=== PATIENT | male | born 1980 | race Caucasian/White ===

== ENCOUNTER 2016-12-02 13:14 | Inpatient (IN) | payer OTHER ==
--- NOTE | 2016-12-02 18:00 | HP ---
HISTORY AND PHYSICAL HISTORY AND PHYSICAL AND DISCHARGE SUMMARY: DATE OF SERVICE: 12/02/2016 This is a combined history and physical and discharge summary. This 36-year-old gentleman with a past medical history of multiple medical problems was admitted with acute diverticulitis referred from [facility], but the patient left the hospital against medical advice before being seen. Please refer to staff notes and other notes for further information. Prognosis remains guarded. FINAL DIAGNOSIS: Acute diverticulitis. MMODL / IJN: [id number] /
== END 2016-12-02 15:45 | disposition left against medical advice (07) | DRG 392 ==
LOC: 4MS4W 15:36
PROVIDERS: ADMIT Hospitalist; ATTEND Hospitalist
DX: K57.92 Diverticulitis of intestine, part unspecified, without perforation or abscess without bleeding (principal); F17.210 Nicotine dependence, cigarettes, uncomplicated; F12.90 Cannabis use, unspecified, uncomplicated

== ENCOUNTER 2016-12-02 15:59 | Inpatient (IN) | payer OTHER ==
[2016-12-02] MEDS ORDERED: SODIUM CHLORIDE 0.9% 1,000 ML IV STA (17:18)
[2016-12-02] MEDS ORDERED: ACETAMINOPHEN TAB 325 MG TAB PO PRN (17:47)
[2016-12-02] MEDS ORDERED: NALOXONE 0.4 MG/ML 1 ML VIAL IV PRN (17:47)
--- NOTE | 2016-12-02 17:47 | ED ---
General Adult HPI <ElvisPio - Last Filed: 12/02/16 17:47> - General Source: patient, RN notes reviewed Mode of arrival: ambulatory Limitations: no limitations <Vaughn Amador - Last Filed: 12/02/16 17:50> - General Chief complaint: Abdominal Pain Stated complaint: abdominal pain Time Seen by Provider: 12/02/16 17:16 - History of Present Illness Initial comments: Patient 36-year-old male who presents emergency room today with chief complaint of abdominal pain over the last 4 days. Does admit that he was at the and transferred here for colitis. Patient states that he was on the floor admitted. He states that he needs to have cigarette and was advised that he would have to go through this admission process of working states that he just needed to have cigarette. He states that the patches do not seem to work well. States he still experiencing lower abdominal discomfort. Patient denies any other complaints or symptoms at time. Patient denies any recent fever, chills, shortness of breath, chest pain, numbness or tingling, dysuria or hematuria, constipation, headaches or visual changes, or any other complaints. (Vaughn Amador) - Related Data Home Medications Medication Instructions Recorded Confirmed No Known Home Medications [No 12/02/16 12/02/16 Known Home Medications] Allergies Allergy/AdvReac Type Severity Reaction Status Date / Time No Known Allergies Allergy Verified 12/02/16 17:41 Review of Systems ROS Other: All systems not noted in ROS Statement are negative. <Pio Leal - Last Filed: 12/02/16 17:47> ROS Other: All systems not noted in ROS Statement are negative. <Vaughn Amador - Last Filed: 12/02/16 17:50> ROS Statement: Those systems with pertinent positive or pertinent negative responses have been documented in the HPI. Past Medical History Past Medical History: No Reported History History of Any Multi-Drug Resistant Organisms: None Reported Past Surgical History: Adenoidectomy, Orthopedic Surgery Past Psychological History: Bipolar, Depression Smoking Status: Current every day smoker Past Alcohol Use History: None Reported Past Drug Use History: None Reported <Vaughn Amador - Last Filed: 12/02/16 17:50> General Exam <Pio Leal - Last Filed: 12/02/16 17:47> Limitations: no limitations <Vaughn Amador - Last Filed: 12/02/16 17:50> - General Exam Comments Initial Comments: General: The patient is awake and alert, in no distress, and does not appear acutely ill. Eye: Pupils are equal, round and reactive to light, extra-ocular movements are intact. No nystagmus. There is normal conjunctiva bilaterally. No signs of icterus. Ears, nose, mouth and throat: There are moist mucous membranes and no oral lesions. Neck: The neck is supple, there is no tenderness or JVD. Cardiovascular: There is a regular rate and rhythm. No murmur, rub or gallop is appreciated. Respiratory: Lungs are clear to auscultation, respirations are non-labored, breath sounds are equal. No wheezes, stridor, rales, or rhonchi. Gastrointestinal: Normal appearance and. Bowel sounds. Abdomen soft on palpation. Patient does have mild tenderness lower abdomen both right and left lower quadrants. No rebound tenderness. No Guarding. Musculoskeletal: Normal ROM, no tenderness. Strength 5/5. Sensation intact. Pulses equal bilaterally 2+. Neurological: A&O x 3. CN II-XII intact, There are no obvious motor or sensory deficits. Coordination appears grossly intact. Speech is normal. Skin: Skin is warm and dry and no rashes or lesions are noted. Psychiatric: Cooperative, appropriate mood & affect, normal judgment. (Vaughn Amador) Course <Pio Leal - Last Filed: 12/02/16 17:47> <Vaughn Amador - Last Filed: 12/02/16 17:50> Vital Signs 12/02/16 17:09 Temperature 97.7 F Pulse Rate 78 Respiratory 18 Rate Blood Pressure 123/72 O2 Sat by Pulse 100 Oximetry - Reevaluation(s) Reevaluation #1: 12/02/16 17:47 The patient is his medical advice and came back to the emergency department. Initially apparently signed out because he wanted to smoke a cigarette. I did discuss the case with Dr. Escoto the patient was readmitted for treatment of diverticulitis. He does have apparently diverticula of the transverse and ascending colon. (Pio Leal) Disposition <Pio Leal - Last Filed: 12/02/16 17:47> Time of Disposition: 17:50 <Vaughn Amador - Last Filed: 12/02/16 17:50> Clinical Impression: Diverticulitis Disposition: HOME SELF-CARE Condition: Good Referrals: None,Stated [Primary Care Provider] - 1-2 days
[2016-12-02] MEDS ORDERED: LEVOFLOXACIN 500MG-D5W PMX 500 MG in DEXTROSE/WATER 1 100ML.BAG IVPB STA (17:49)
[2016-12-02] MEDS ORDERED: metroNIDAZOLE-NS PMX 500 MG in SALINE 1 100ML.BAG IVPB STA (17:51)
[2016-12-02] MEDS: HYDROmorphone 1 MG/ML 1 ML SYRINGE IV PRN ×2 (18:05→21:07)
[2016-12-02 18:19] LABS: Basophils # (A) 0.1 k/uL (0-0.2); Basophils % (A) 1 %; CH 32.4; CHCM 34.1; Eosinophils % (A) 0 %; HCT 38.8 % (39.0-53.0); HDW 2.34; HGB 12.7 gm/dL (13.0-17.5); Luc # (Auto) 0.19; Luc % (Auto) 2; Lymphocytes # (A) 1.2 k/uL (1.0-4.8); Lymphocytes % (A) 11 %; MCH 31.2 pg (25.0-35.0); MCHC 32.6 g/dL (31.0-37.0); MCV 95.7 fL (80.0-100.0); Mean Platelet Volume 7.8; Monocytes # (A) 0.7 k/uL (0-1.0); Monocytes % (A) 7 %; Neutrophils # (A) 8.3 k/uL (1.3-7.7); Neutrophils % (A) 79 %; RBC 4.06 m/uL (4.30-5.90); RDW 14.1 % (11.5-15.5); WBC 10.5 k/uL (3.8-10.6); WBC (Perox) 11.56
[2016-12-02 18:22] LABS: Appearance,Urine Clear (Clear); Bacteria,Urine Rare /hpf; Bilirubin,Urine Negative (Negative); Glucose,Urine (UA) Negative (Negative); Ketones,Urine Negative (Negative); Leukocyte Esterase,Urine Negative (Negative); Nitrite,Urine Negative (Negative); PH, Urine 6.5 (5.0-8.0); Particle Count 1043; Protein,Urine Trace (Negative); RBC,Urine 3 /hpf (0-5); Specific Gravity,Urine 1.027 (1.001-1.035); UA Billing (MACRO vs. MICRO) MICRO; Urobilinogen,Urine <2.0 mg/dL (<2.0); WBC,Urine 1 /hpf (0-5)
[2016-12-02 18:31] LABS: ALT 36 U/L (21-72); AST 20 U/L (17-59); Alkaline Phosphatase 59 U/L (38-126); Anion Gap 9 mmol/L; Blood Urea Nitrogen 8 mg/dL (9-20); Calcium 8.7 mg/dL (8.4-10.2); Carbon Dioxide 21 mmol/L (22-30); Chloride 109 mmol/L (98-107); Glucose 87 mg/dL (74-99); Non-African American GFR(MDRD) >60 (>60 ml/min/1.73 sqM); Potassium 4.1 mmol/L (3.5-5.1); Sodium 139 mmol/L (137-145); Total Bilirubin 0.2 mg/dL (0.2-1.3); Total Protein 6.4 g/dL (6.3-8.2)
--- NOTE | 2016-12-02 18:35 | ED ---
Medical Decision Making - Lab Data Result diagrams: 12/02/16 18:09 12/02/16 18:09 Lab Results 12/02/16 12/02/16 12/02/16 Range/Units 18:09 18:09 18:09 WBC 10.5 (3.8-10.6) k/uL RBC 4.06 L (4.30-5.90) m/uL Hgb 12.7 L (13.0-17.5) gm/dL Hct 38.8 L (39.0-53.0) % MCV 95.7 (80.0-100.0) fL MCH 31.2 (25.0-35.0) pg MCHC 32.6 (31.0-37.0) g/dL RDW 14.1 (11.5-15.5) % Plt Count 230 (150-450) k/uL Neutrophils % 79 % Lymphocytes % 11 % Monocytes % 7 % Eosinophils % 0 % Basophils % 1 % Neutrophils # 8.3 H (1.3-7.7) k/uL Lymphocytes # 1.2 (1.0-4.8) k/uL Monocytes # 0.7 (0-1.0) k/uL Eosinophils # 0.0 (0-0.7) k/uL Basophils # 0.1 (0-0.2) k/uL Sodium 139 (137-145) mmol/L Potassium 4.1 (3.5-5.1) mmol/L Chloride 109 H (98-107) mmol/L Carbon Dioxide 21 L (22-30) mmol/L Anion Gap 9 mmol/L BUN 8 L (9-20) mg/dL Creatinine 0.74 (0.66-1.25) mg/dL Est GFR (MDRD) Af Amer >60 (>60 ml/min/1.73 sqM) Est GFR (MDRD) Non-Af >60 (>60 ml/min/1.73 sqM) Glucose 87 (74-99) mg/dL Calcium 8.7 (8.4-10.2) mg/dL Total Bilirubin 0.2 (0.2-1.3) mg/dL AST 20 (17-59) U/L ALT 36 (21-72) U/L Alkaline Phosphatase 59 (38-126) U/L Total Protein 6.4 (6.3-8.2) g/dL Albumin 3.6 (3.5-5.0) g/dL Urine Color Yellow Urine Appearance Clear (Clear) Urine pH 6.5 (5.0-8.0) Ur Specific [place] 1.027 (1.001-1.035) Urine Protein Trace H (Negative) Urine Glucose (UA) Negative (Negative) Urine Ketones Negative (Negative) Urine Blood Trace H (Negative) Urine Nitrite Negative (Negative) Urine Bilirubin Negative (Negative) Urine Urobilinogen <2.0 (<2.0) mg/dL Ur Leukocyte Esterase Negative (Negative) Urine RBC 3 (0-5) /hpf Urine WBC 1 (0-5) /hpf Urine Bacteria Rare H (None) /hpf Disposition Clinical Impression: Diverticulitis Disposition: ADMITTED IP TO THIS [facility] Condition: Good Referrals: None,Stated [Primary Care Provider] - 1-2 days
[2016-12-03] MEDS: HYDROmorphone 1 MG/ML 1 ML SYRINGE IV PRN ×7 (00:42→22:51)
[2016-12-03] MEDS: ONDANSETRON 4 MG/2 ML VIAL IVP PRN ×3 (00:50→18:53)
[2016-12-03] MEDS: metroNIDAZOLE-NS PMX 500 MG in SALINE 1 100ML.BAG IVPB SCH ×3 (03:51→20:20)
[2016-12-03 08:17] LABS: Basophils # (A) 0.1 k/uL (0-0.2); Basophils % (A) 1 %; CH 31.4; CHCM 32.4; Eosinophils # (A) 0.1 k/uL (0-0.7); Eosinophils % (A) 1 %; HCT 38.7 % (39.0-53.0); HDW 2.32; HGB 12.2 gm/dL (13.0-17.5); Luc # (Auto) 0.37; Luc % (Auto) 4; Lymphocytes # (A) 1.3 k/uL (1.0-4.8); Lymphocytes % (A) 14 %; MCH 30.8 pg (25.0-35.0); MCHC 31.6 g/dL (31.0-37.0); MCV 97.3 fL (80.0-100.0); Mean Platelet Volume 7.7; Monocytes # (A) 0.7 k/uL (0-1.0); Monocytes % (A) 8 %; Neutrophils # (A) 6.4 k/uL (1.3-7.7); Neutrophils % (A) 72 %; RBC 3.98 m/uL (4.30-5.90); RDW 13.1 % (11.5-15.5); WBC 8.9 k/uL (3.8-10.6); WBC (Perox) 9.47
[2016-12-03 08:40] LABS: ALT 34 U/L (21-72); AST 19 U/L (17-59); Alkaline Phosphatase 64 U/L (38-126); Anion Gap 8 mmol/L; Blood Urea Nitrogen 8 mg/dL (9-20); Calcium 8.6 mg/dL (8.4-10.2); Carbon Dioxide 23 mmol/L (22-30); Chloride 109 mmol/L (98-107); Glucose 82 mg/dL (74-99); Non-African American GFR(MDRD) >60 (>60 ml/min/1.73 sqM); Potassium 4.4 mmol/L (3.5-5.1); Sodium 140 mmol/L (137-145); Total Bilirubin 0.2 mg/dL (0.2-1.3); Total Protein 5.9 g/dL (6.3-8.2)
[2016-12-03] MEDS: NICOTINE 21MG/24HR PATCH TRANSDERM SCH ×2 (12:46→12:51)
[2016-12-03] MEDS: LORazepam 2 MG/ML INJ IV PRN ×2 (12:46→18:49)
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
[2016-12-03] MEDS ORDERED: TEMAZEPAM 15 MG CAP PO PRN (16:04)
--- NOTE | 2016-12-03 17:45 | HP ---
HISTORY AND PHYSICAL DATE OF SERVICE: 12/03/2016 CHIEF COMPLAINT: Abdominal pain. HISTORY OF PRESENT ILLNESS: This 36-year-old gentleman with a past medical history of GERD, history of asthma not being followed by any primary physician in the outpatient setting also history of bipolar and depression. Also the patient apparently transferred to [facility] yesterday with complaints of abdominal pain. Abdominal pain was there for 5 days. Patient also complains of diarrhea. Pain was diffusely situated. The CT scan of the abdomen and pelvis was done yesterday in [facility] which showed diffuse thickening and possible diverticulitis/colitis involving the transverse and descending colon. Patient was transferred to [facility] but apparently the patient left against hospital advice and the patient came back again through the ER. The patient admitted for further evaluation and treatment. There is no history of any fever, rigors. No history of headache, loss of consciousness, seizures at this time. PAST MEDICAL HISTORY: Asthma, GERD, history of appendectomy, history of polypectomy, colonoscopy, bipolar, depression. MEDICATIONS: None. ALLERGIES: None. FAMILY HISTORY: History of diabetes mellitus and fibromyalgia, brain tumors. SOCIAL HISTORY: History of THC, history of smoking. REVIEW OF SYSTEMS: ENT: No diminished hearing or vision. CARDIOVASCULAR: No angina. RESPIRATORY: No cough or hemoptysis. GI: As mentioned earlier. : No dysuria. NERVOUS SYSTEM: No numbness or weakness. ALLERGY/IMMUNOLOGY: No asthma or hayfever. MUSCULOSKELETAL: As mentioned earlier. HEMATOLOGY/ONCOLOGY: No history of anemia. ENDOCRINE: No history of diabetes or hypothyroidism. CONSTITUTIONAL: As mentioned earlier. DERMATOLOGY: Negative. RHEUMATOLOGY: Negative. PSYCHIATRY: As mentioned earlier. PHYSICAL EXAMINATION: Patient is alert and oriented x3. Pulse is 60, blood pressure 90/52, respirations 16, temperature is 97.4, pulse ox 100% on room air. HEENT: Conjunctivae normal. NECK: No jugular venous distention. CARDIOVASCULAR: S1, S2. RESPIRATORY: Breath sounds diminished at the bases. A few scattered rhonchi and crackles. Expiratory wheezing also present. ABDOMEN: Soft. Mild diffuse tenderness present. No guarding, no rigidity, no mass palpable LEGS: No edema, no swelling. NERVOUS SYSTEM: Higher function as mentioned. Moves all four limbs. No focal motor sensory deficits. LYMPHATICS: No lymphadenopathy in the neck, axillae or groin. SKIN: No rash, ulcer or bleeding. LAB STUDIES: WBC 8.9, hemoglobin 12.2 and 178, 3.9, albumin is 2.2. ASSESSMENT: 1. Diffuse abdominal pain, diffuse colitis involving the transverse and descending colon, rule out diverticulitis. 2. Anemia normocytic. 3. History of subacute diarrhea. 4. History of asthma. 5. History of gastroesophageal reflux disease. 6. History of nicotine dependence. 7. History of bipolar depression. 8. History of degenerative joint disease. 9. History of polypectomy. 10.History of THC. RECOMMENDATIONS AND DISCUSSION: In this 36-year-old gentleman who presented with multiple complex medical issues. We will monitor the patient closely. Continue the current medications, continue symptomatic treatment. The patient started on broad-spectrum IV antibiotics. I recommend DVT prophylaxis and also add Ativan to the current regimen. Continue the pain medications. Otherwise repeat labs. Habitrol patch guarded prognosis because of multiple complex medical issues. Further recommendations to follow. MMODL / IJN: [id number] /
[2016-12-03] MEDS: HEPARIN SODIUM,PORCINE 5,000 UNIT/ML 1 ML VIAL SQ SCH (20:20)
[2016-12-03] MEDS: LEVOFLOXACIN 500MG-D5W PMX 500 MG in DEXTROSE/WATER 1 100ML.BAG IVPB SCH (23:13)
[2016-12-04] MEDS: LORazepam 2 MG/ML INJ IV PRN ×4 (01:53→22:11)
[2016-12-04] MEDS: HYDROmorphone 1 MG/ML 1 ML SYRINGE IV PRN ×3 (01:53→07:19)
[2016-12-04] MEDS: metroNIDAZOLE-NS PMX 500 MG in SALINE 1 100ML.BAG IVPB SCH ×2 (04:27→11:27)
[2016-12-04] MEDS: ONDANSETRON 4 MG/2 ML VIAL IVP PRN ×3 (04:28→18:13)
[2016-12-04 08:44] LABS: Basophils # (A) 0.1 k/uL (0-0.2); Basophils % (A) 1 %; CH 31.5; Eosinophils # (A) 0.2 k/uL (0-0.7); Eosinophils % (A) 3 %; HCT 38.7 % (39.0-53.0); HDW 2.48; HGB 12.8 gm/dL (13.0-17.5); Luc # (Auto) 0.23; Luc % (Auto) 3; Lymphocytes # (A) 1.3 k/uL (1.0-4.8); Lymphocytes % (A) 18 %; MCH 31.7 pg (25.0-35.0); MCHC 33.1 g/dL (31.0-37.0); MCV 95.8 fL (80.0-100.0); Mean Platelet Volume 7.6; Monocytes # (A) 0.4 k/uL (0-1.0); Monocytes % (A) 6 %; Neutrophils % (A) 69 %; RBC 4.05 m/uL (4.30-5.90); RDW 12.9 % (11.5-15.5); WBC 7.3 k/uL (3.8-10.6); WBC (Perox) 7.22
[2016-12-04 08:47] LABS: ALT 33 U/L (21-72); AST 20 U/L (17-59); Alkaline Phosphatase 73 U/L (38-126); Anion Gap 8 mmol/L; Blood Urea Nitrogen 6 mg/dL (9-20); Calcium 8.8 mg/dL (8.4-10.2); Carbon Dioxide 28 mmol/L (22-30); Chloride 104 mmol/L (98-107); Glucose 87 mg/dL (74-99); Non-African American GFR(MDRD) >60 (>60 ml/min/1.73 sqM); Potassium 4.3 mmol/L (3.5-5.1); Sodium 140 mmol/L (137-145); Total Bilirubin 0.2 mg/dL (0.2-1.3); Total Protein 6.1 g/dL (6.3-8.2)
--- NOTE | 2016-12-04 10:25 | P.PN ---
Subjective -36 year-old male being seen on rounds this morning. Patient states he continues to have loose greenish watery stool. Patient states he's had at least 5 since midnight patient states he has abdominal cramping stool for C. diff was negative stool for occult blood was negative as well electrolytes within normal limits AST 20 ALT 33 and alk phos 73 C-reactive protein was elevated at 78. Heart rate in the 50s afebrile patients being followed by surgical service at the request of the attending for abdominal pain with frequent loose stooling. A CAT scan of the abdomen pelvis showed moderate wall thickening of the transverse descending colon suggesting colitis Objective - Vital Signs Vital signs: Vital Signs Temp 97.0 F L 12/04/16 07:25 Pulse 62 12/04/16 07:25 Resp 14 12/04/16 07:25 BP 124/74 12/04/16 07:25 Pulse Ox 98 12/04/16 07:25 Intake & Output 12/03/16 12/04/16 12/04/16 18:59 06:59 18:59 Intake Total 900 1290 Output Total 1 Balance 900 1289 Intake: Intake, IV Titration 100 Amount metroNIDAZOLE-NS PMX 500 100 mg In Saline 1 100ml.bag @ 100 mls/hr IVPB Q8H [facility] Rx#:[id number] Oral 900 1190 Output: Emesis 1 Other: Voiding Method Toilet Toilet # Voids 1 2 # Bowel Movements 1 1 - Exam Physical exam 36-year-old male sitting up in bed continues to report having had at least 5 loose green stools since midnight with abdominal cramping which has improved Lungs essentially clear adequate air movement no wheezing rales or rhonchi Heart S1-S2 audible regular no murmur Abdomen flat not distended slight tenderness no facial grimacing with palpitation to the abdominal wall active bowel tones noted tolerating clear liquid states urinating no difficulty Extremities no edema noted - Labs CBC & Chem 7: 12/04/16 07:47 12/04/16 07:47 Labs: Abnormal Lab Results - Last 24 Hours (Table) 12/03/16 12/04/16 12/04/16 Range/Units 07:32 07:47 07:47 RBC 4.05 L (4.30-5.90) m/uL Hgb 12.8 L (13.0-17.5) gm/dL Hct 38.7 L (39.0-53.0) % BUN 6 L (9-20) mg/dL C-Reactive Protein 78.0 H (<10.0) mg/L Total Protein 6.1 L (6.3-8.2) g/dL Albumin 3.4 L (3.5-5.0) g/dL Assessment and Plan Plan: Impression Present on admission frequent intractable loose stooling with abdominal pain nausea vomiting suspect due to colitis History of unintentional weight loss CAT scan abdomen and pelvis with contrast shows moderate mural wall thickening of the transverse and descending colon suggestive of colitis Positive drug screen for marijuana Chronic nicotine dependency clinical dehydration due to poor oral intake Leukocytosis on December 01 improved Elevated CRP and sed rate Mild protein calorie malnutrition underweight BMI 20 suspect due to poor caloric intake Plan Consult dietitian will start PPN for nutritional support Continue IV antibiotic Levaquin and Flagyl day 2 IV fluid for hydration Check stools culture ovarian parasite Pain control Continue clear liquids Eventually will need an EGD and a colonoscopy as part of the workup anticipate to be done on December 07 Further recommendations pending The above impression and plan of care have been discussed and directed by signing physician. Manisha Mcarthur nurse practitioner acting as scribe for signing physician.
[2016-12-04] MEDS: NICOTINE 21MG/24HR PATCH TRANSDERM SCH (10:36)
[2016-12-04] MEDS: HEPARIN SODIUM,PORCINE 5,000 UNIT/ML 1 ML VIAL SQ SCH ×2 (10:37→20:24)
[2016-12-04] MEDS: HYDROmorphone 0.5 MG/0.5 ML SYRINGE IVP PRN ×3 (11:31→20:23)
[2016-12-04] MEDS: metroNIDAZOLE 500 MG TAB PO SCH ×2 (16:28→23:10)
[2016-12-04 16:51] LABS: Phosphorous 2.8 mg/dL (2.5-4.5)
[2016-12-04] MEDS ORDERED: MVI, ADULT NO.4 WITH VIT K 10 ML, TRACE (CONC-1ML/DOSE) 1 ML in AMINO ACID 4.25%-D10W+L... IV SCH ×3 (17:00)
--- NOTE | 2016-12-04 18:23 | PN ---
PROGRESS NOTE DATE OF SERVICE: 12/04/2016 This 36-year-old gentleman who was admitted with diffuse abdominal pain also had diffuse colitis. The patient had some diarrhea and significant pain also. Surgery is following the patient closely. No chest pain. No palpitations. Patient is on empiric broad-spectrum IV antibiotics. PHYSICAL EXAMINATION: Patient is alert, oriented x3. Pulse 62, blood pressure 124/72, respiration 14, temperature 97 degrees, pulse ox 98% on room air. HEENT: Conjunctivae normal. NECK: No jugular venous distention. CARDIOVASCULAR: S1, S2 muffled. RESPIRATORY: Breath sounds diminished at the bases. A few scattered rhonchi and crackles. ABDOMEN: Soft. Mild diffuse discomfort. No mass palpable. LEGS: No edema. No swelling. NERVOUS SYSTEM: No focal deficit. LABS: WBC 7.3, hemoglobin 12.8. Albumin is 3.4. ASSESSMENT: 1. Diffuse abdominal pain, diffuse colitis involving the transverse and descending colon. Rule out diverticulitis. 2. Anemia, normocytic. 3. History of subacute diarrhea. 4. History of asthma. 5. History of gastroesophageal reflux disease. 6. History of nicotine dependence. 7. History of bipolar depression. 8. History of degenerative joint disease. 9. History of polypectomy. 10.History of THC. RECOMMENDATIONS AND DISCUSSION: I recommend to continue current medication, continue with the monitoring, continue with symptomatic treatment. Otherwise at this time I recommend continuing with the empiric antibiotics. Closely follow with Surgery. Patient is on clear liquid diet. Pain medications. Further recommendations to follow. MMODL / IJN: [id number] /
[2016-12-04] MEDS: FAT EMULSION 20% 250 ML IV SCH (18:55)
[2016-12-04] MEDS: LEVOFLOXACIN 500MG-D5W PMX 500 MG in DEXTROSE/WATER 1 100ML.BAG IVPB SCH (20:19)
[2016-12-04] MEDS: INSULIN LISPRO (humaLOG) 300 UNIT/3 ML VIAL SQ SCH (20:20)
[2016-12-04 22:55] LABS: Hemoglobin A1C 5.4 % (4.2-6.1)
[2016-12-05] MEDS: INSULIN LISPRO (humaLOG) 300 UNIT/3 ML VIAL SQ SCH ×4 (00:29→18:31)
[2016-12-05] MEDS: HYDROmorphone 0.5 MG/0.5 ML SYRINGE IVP PRN ×7 (00:33→21:03)
[2016-12-05 00:48] LABS: Glucose,Whole Blood 87 mg/dL (75-99)
[2016-12-05] MEDS: ONDANSETRON 4 MG/2 ML VIAL IVP PRN ×3 (02:41→23:26)
[2016-12-05] MEDS: LORazepam 2 MG/ML INJ IV PRN ×3 (06:09→19:43)
[2016-12-05 06:10] LABS: Glucose,Whole Blood 103 mg/dL (75-99)
[2016-12-05 07:52] LABS: Anion Gap 9 mmol/L; Blood Urea Nitrogen 4 mg/dL (9-20); Calcium 8.8 mg/dL (8.4-10.2); Carbon Dioxide 25 mmol/L (22-30); Chloride 106 mmol/L (98-107); Glucose 114 mg/dL (74-99); Magnesium 1.9 mg/dL (1.6-2.3); Non-African American GFR(MDRD) >60 (>60 ml/min/1.73 sqM); Potassium 3.7 mmol/L (3.5-5.1); Sodium 140 mmol/L (137-145)
[2016-12-05] MEDS: metroNIDAZOLE 500 MG TAB PO SCH (09:49)
[2016-12-05] MEDS: HEPARIN SODIUM,PORCINE 5,000 UNIT/ML 1 ML VIAL SQ SCH ×2 (09:49→19:53)
[2016-12-05] MEDS: NICOTINE 21MG/24HR PATCH TRANSDERM SCH (09:49)
--- NOTE | 2016-12-05 10:53 | P.PN ---
Subjective Principal diagnosis: Colitis 36-year-old male patient seen and examined at bedside. He states that he is in severe abdominal pain secondary to multiple liquid green bowel movements. He states that Dilaudid given every 4 hours is not enough for the pain. He states he was given Flagyl by mouth antibiotic yesterday and this caused him severe nausea and emesis. He states he has felt more energy after being started on TPN. He denies fevers, chills, chest pain or shortness of breath. Objective - Vital Signs Vital signs: Vital Signs Temp 97.6 F 12/05/16 07:00 Pulse 68 12/05/16 07:00 Resp 18 12/04/16 15:00 BP 121/63 12/05/16 07:00 Pulse Ox 98 12/05/16 07:00 Intake & Output 12/04/16 12/05/16 12/05/16 18:59 06:59 18:59 Intake Total 213 Balance 213 Weight 73.028 kg 68.5 kg Intake: Intake, IV Titration 213 Amount Fat Emulsion 20% 250 ml @ 63 21 mls/hr IV Q24H [facility] Rx #:[id number] Mvi, Adult No.4 with Vit 150 K 10 ml Trace (Conc-1Ml/ Dose) 1 ml In Amino Acid 4.25%-D10w+Lytes*E* 1,000 ml @ 50 mls/hr IV . [id number] [facility] Rx#:[id number] Other: Voiding Method Toilet Toilet # Voids 2 1 # Bowel Movements 1 - Constitutional General appearance: Present: cooperative, no acute distress - EENT Eyes: Present: EOMI, PERRLA ENT: Present: hearing grossly normal - Neck Neck: Present: normal ROM. Absent: lymphadenopathy, stridor - Respiratory Details: No difficulty with respiration - Cardiovascular Rhythm: regular Heart sounds: normal: S1, S2 - Gastrointestinal Gastrointestinal Comment(s): Soft, nondistended, nontender, no rebound, no guarding, no palpable masses - Integumentary Integumentary: Present: normal turgor - Psychiatric Psychiatric: Present: A&O x's 3, appropriate affect, intact judgment & insight - Labs CBC & Chem 7: 12/04/16 07:47 12/05/16 06:46 Labs: Abnormal Lab Results - Last 24 Hours (Table) 12/05/16 12/05/16 Range/Units 06:00 06:46 BUN 4 L (9-20) mg/dL Glucose 114 H (74-99) mg/dL POC Glucose (mg/dL) 103 H (75-99) mg/dL Microbiology - Last 24 Hours (Table) 12/04/16 07:00 Stool for WBCs - Final Stool 12/04/16 07:00 Stool Culture - Preliminary Stool Assessment and Plan (1) Colitis Status: Acute Plan: Due to the patient's inability to tolerate the pain his Dilaudid has been changed from every 4 to every 3 hours. Due to the patient's nausea and emesis with oral Flagyl I has changed this to an IV medication. Continue clear liquid diet. Plan for colonoscopy and EGD on December 07.
[2016-12-05 12:47] LABS: Glucose,Whole Blood 98 mg/dL (75-99)
[2016-12-05] MEDS: 1: MVI, ADULT NO.4 WITH VIT K 10 ML, TRACE (CONC-1ML/DOSE) 1 ML in AMINO ACID 4.25%-D10W IV SCH ×6 (13:31→15:00)
[2016-12-05] MEDS: metroNIDAZOLE-NS PMX 500 MG in SALINE 1 100ML.BAG IVPB SCH ×2 (16:16→23:26)
[2016-12-05] MEDS: FAT EMULSION 20% 250 ML IV SCH (17:52)
--- NOTE | 2016-12-05 18:18 | PN ---
PROGRESS NOTE DATE OF SERVICE: 12/05/2016 INTERVAL HISTORY: This 36-year-old gentleman was admitted with diffuse abdominal pain also had features of diffuse colitis. The patient has been closely monitored. Patient has some diarrhea and severe abdominal pain. Colonoscopy is being planned on Wednesday tentatively. No chest pain. No palpitations. No fever. EXAM: Alert and oriented times three. Pulse 68, blood pressure 120/60, respiration 20, temperature 97.2, pulse ox 98% on room air. HEENT: Conjunctivae normal. Neck: No jugular venous distention. Cardiovascular: S1, S2 muffled. Respiratory: Breath sounds diminished at the bases. A few scattered rhonchi. No crackles. Abdomen is soft. Mild diffuse discomfort on palpation. Tenderness present. central nervous system: No focal deficits. LABS: CBC noted. Other labs are noted. C. dif negative. ASSESSMENT: 1. Diffuse abdominal pain with diffuse colitis involving the transverse and descending colon, rule out diverticulitis. 2. Anemia normocytic. 3. History of subacute diarrhea. 4. History of asthma. 5. History of gastroesophageal reflux disease. 6. History of nicotine dependence. 7. History of bipolar depression. 8. History of degenerative joint disease. 9. History of polypectomy. 10.History of THC. RECOMMENDATIONS AND DISCUSSION: 1. Recommend to continue current medications. 2. Continue with monitoring and symptomatic treatment. 3. Otherwise at this time I recommend continue with empiric antibiotics. 4. Pain medications. 5. Closely follow with follow surgery for possible endoscopes. 6. Further workup in outpatient setting. 7. Further recommendations to follow. MMODL / IJN: [id number] /
[2016-12-05 18:28] LABS: Glucose,Whole Blood 145 mg/dL (75-99)
[2016-12-05] MEDS: LEVOFLOXACIN 500MG-D5W PMX 500 MG in DEXTROSE/WATER 1 100ML.BAG IVPB SCH (19:27)
[2016-12-05] MEDS: PANTOPRAZOLE 40 MG/10 ML VIAL IVP SCH (21:07)
[2016-12-06 00:06] LABS: Glucose,Whole Blood 119 mg/dL (75-99)
[2016-12-06] MEDS: HYDROmorphone 0.5 MG/0.5 ML SYRINGE IVP PRN ×8 (00:16→22:49)
[2016-12-06] MEDS: INSULIN LISPRO (humaLOG) 300 UNIT/3 ML VIAL SQ SCH ×4 (00:16→18:15)
[2016-12-06] MEDS: 1: MVI, ADULT NO.4 WITH VIT K 10 ML, TRACE (CONC-1ML/DOSE) 1 ML in AMINO ACID 4.25%-D10W IV SCH ×3 (04:08)
[2016-12-06 06:04] LABS: Glucose,Whole Blood 124 mg/dL (75-99)
[2016-12-06 07:16] LABS: Anion Gap 6 mmol/L; Blood Urea Nitrogen 6 mg/dL (9-20); Carbon Dioxide 28 mmol/L (22-30); Chloride 107 mmol/L (98-107); Glucose 101 mg/dL (74-99); Magnesium 2.1 mg/dL (1.6-2.3); Non-African American GFR(MDRD) >60 (>60 ml/min/1.73 sqM); Phosphorous 3.4 mg/dL (2.5-4.5); Potassium 4.2 mmol/L (3.5-5.1); Sodium 141 mmol/L (137-145)
[2016-12-06] MEDS: LORazepam 2 MG/ML INJ IV PRN ×2 (08:35→14:50)
[2016-12-06] MEDS: ONDANSETRON 4 MG/2 ML VIAL IVP PRN ×2 (08:35→17:30)
[2016-12-06] MEDS: NICOTINE 21MG/24HR PATCH TRANSDERM SCH (08:36)
[2016-12-06] MEDS: metroNIDAZOLE-NS PMX 500 MG in SALINE 1 100ML.BAG IVPB SCH ×2 (08:36→16:01)
[2016-12-06] MEDS: HEPARIN SODIUM,PORCINE 5,000 UNIT/ML 1 ML VIAL SQ SCH ×2 (08:36→20:10)
[2016-12-06] MEDS: PANTOPRAZOLE 40 MG/10 ML VIAL IVP SCH (08:36)
[2016-12-06] MEDS ORDERED: PEG 3350-NA SULF,BICARB,CL/KCL 4,000 ML BOTTLE PO ONE (10:42)
--- NOTE | 2016-12-06 10:45 | P.PN ---
Subjective Principal diagnosis: Colitis Patient seen and examined at bedside. He states that his bowel movement frequency has decreased. He states his last bowel movement was somewhat more solid and brown in color. He denies any nausea he denies any emesis. He states he continues to have abdominal pain. He is tolerating a clear liquid diet. He has no additional complaints at this time. Objective - Vital Signs Vital signs: Vital Signs Temp 97.0 F L 12/06/16 07:00 Pulse 60 12/06/16 07:00 Resp 17 12/05/16 22:53 BP 120/78 12/06/16 07:00 Pulse Ox 98 12/06/16 07:00 Intake & Output 12/05/16 12/06/16 12/06/16 18:59 06:59 18:59 Intake Total 1764 Balance 1764 Weight 68 kg Intake: Intake, IV Titration 1764 Amount Amino Acid 4.25%-D10w+ 664 Lytes*E* 1,000 ml @ 83 mls/hr IV .BY DURATION [facility] Rx#:[id number] Fat Emulsion 20% 250 ml @ 336 21 mls/hr IV Q24H [facility] Rx #:[id number] Mvi, Adult No.4 with Vit 664 K 10 ml Trace (Conc-1Ml/ Dose) 1 ml In Amino Acid 4.25%-D10w+Lytes*E* 1,000 ml @ 83 mls/hr IV .BY DURATION [facility] Rx#: [id number] metroNIDAZOLE-NS PMX 500 100 mg In Saline 1 100ml.bag @ 100 mls/hr IVPB Q8HR [facility] Rx#:[id number] Other: Voiding Method Toilet Toilet Toilet # Voids 4 1 # Bowel Movements 2 - Constitutional General appearance: Present: cooperative, no acute distress - EENT Eyes: Present: EOMI, PERRLA ENT: Present: hearing grossly normal - Neck Neck: Present: normal ROM. Absent: lymphadenopathy, stridor - Respiratory Details: No difficulty with respiration - Cardiovascular Rhythm: regular Heart sounds: normal: S1, S2 - Gastrointestinal Gastrointestinal Comment(s): Soft, nontender, nondistended, no rebound, no guarding - Integumentary Integumentary: Present: normal turgor - Psychiatric Psychiatric: Present: A&O x's 3, appropriate affect, intact judgment & insight - Labs CBC & Chem 7: 12/04/16 07:47 12/06/16 06:33 Labs: Abnormal Lab Results - Last 24 Hours (Table) 12/05/16 12/05/16 12/06/16 Range/Units 18:26 23:58 06:02 BUN (9-20) mg/dL Glucose (74-99) mg/dL POC Glucose (mg/dL) 145 H 119 H 124 H (75-99) mg/dL 12/06/16 Range/Units 06:33 BUN 6 L (9-20) mg/dL Glucose 101 H (74-99) mg/dL POC Glucose (mg/dL) (75-99) mg/dL Assessment and Plan (1) Colitis Status: Acute Plan: Plan for upper and lower endoscopy tomorrow. Continue clear liquid diet throughout the day Begin colon prep today Nothing by mouth after midnight Continue antibiotics
[2016-12-06 11:48] LABS: Glucose,Whole Blood 103 mg/dL (75-99)
[2016-12-06] MEDS: FAT EMULSION 20% 250 ML IV SCH (17:30)
[2016-12-06 18:12] LABS: Glucose,Whole Blood 136 mg/dL (75-99)
[2016-12-06] MEDS: LEVOFLOXACIN 500MG-D5W PMX 500 MG in DEXTROSE/WATER 1 100ML.BAG IVPB SCH (19:36)
[2016-12-06 23:18] VITALS: RESP 16
[2016-12-07] MEDS: metroNIDAZOLE-NS PMX 500 MG in SALINE 1 100ML.BAG IVPB SCH ×2 (00:01→07:47)
[2016-12-07 00:47] LABS: Glucose,Whole Blood 103 mg/dL (75-99)
[2016-12-07] MEDS: INSULIN LISPRO (humaLOG) 300 UNIT/3 ML VIAL SQ SCH ×3 (01:00→13:28)
[2016-12-07] MEDS: 1: MVI, ADULT NO.4 WITH VIT K 10 ML, TRACE (CONC-1ML/DOSE) 1 ML in AMINO ACID 4.25%-D10W IV SCH ×3 (04:50)
[2016-12-07 06:16] LABS: Glucose,Whole Blood 121 mg/dL (75-99)
[2016-12-07 07:33] LABS: Basophils # (A) 0.1 k/uL (0-0.2); Basophils % (A) 1 %; CH 31.2; CHCM 33.1; Eosinophils # (A) 0.4 k/uL (0-0.7); Eosinophils % (A) 4 %; HCT 40.8 % (39.0-53.0); HDW 2.55; HGB 13.5 gm/dL (13.0-17.5); Luc # (Auto) 0.31; Luc % (Auto) 4; Lymphocytes # (A) 1.7 k/uL (1.0-4.8); Lymphocytes % (A) 22 %; MCH 31.2 pg (25.0-35.0); MCV 94.7 fL (80.0-100.0); Mean Platelet Volume 7.3; Monocytes # (A) 0.5 k/uL (0-1.0); Monocytes % (A) 7 %; Neutrophils # (A) 4.9 k/uL (1.3-7.7); Neutrophils % (A) 62 %; RBC 4.31 m/uL (4.30-5.90); RDW 12.9 % (11.5-15.5); WBC 7.9 k/uL (3.8-10.6); WBC (Perox) 8.65
[2016-12-07 07:46] LABS: Anion Gap 8 mmol/L; Blood Urea Nitrogen 8 mg/dL (9-20); Calcium 9.1 mg/dL (8.4-10.2); Carbon Dioxide 26 mmol/L (22-30); Chloride 107 mmol/L (98-107); Glucose 102 mg/dL (74-99); Non-African American GFR(MDRD) >60 (>60 ml/min/1.73 sqM); Phosphorous 2.8 mg/dL (2.5-4.5); Potassium 4.3 mmol/L (3.5-5.1); Sodium 141 mmol/L (137-145)
[2016-12-07] MEDS: HYDROmorphone 0.5 MG/0.5 ML SYRINGE IVP PRN ×2 (07:46→11:54)
[2016-12-07] MEDS: HEPARIN SODIUM,PORCINE 5,000 UNIT/ML 1 ML VIAL SQ SCH (07:47)
[2016-12-07] MEDS: PANTOPRAZOLE 40 MG/10 ML VIAL IVP SCH (07:47)
[2016-12-07] MEDS: NICOTINE 21MG/24HR PATCH TRANSDERM SCH (07:47)
[2016-12-07] MEDS: LORazepam 2 MG/ML INJ IV PRN (07:47)
[2016-12-07 08:05] VITALS: BP 112/75; PULSE 62; TEMP 97
[2016-12-07] MEDS: ONDANSETRON 4 MG/2 ML VIAL IVP PRN (09:50)
[2016-12-07] MEDS ORDERED: PROPOFOL 10 MG/ML 20 ML VIAL IV ONE (10:44)
[2016-12-07] MEDS ORDERED: GLYCOPYRROLATE 0.2 MG/ML 2 ML VIAL ONE (10:44)
[2016-12-07] MEDS ORDERED: fentaNYL (PF) 50 MCG/ML 2 ML AMP ONE (10:44)
[2016-12-07] MEDS ORDERED: MIDAZOLAM 2 MG/2 ML VIAL ONE (10:44)
[2016-12-07] MEDS ORDERED: LIDOCAINE 1% INJ 10MG/ML (20 ML MDV) ONE (10:44)
[2016-12-07] MEDS ORDERED: IV FLUID CONTINUATION 1,000 ML IV ONE (10:48)
[2016-12-07 11:13] VITALS: BMI 19.9
--- NOTE | 2016-12-07 11:27 | P.OP ---
Date of Procedure: 12/07/16 Preoperative Diagnosis: Epigastric pain Colitis Postoperative Diagnosis: Antral gastritis Colon Biopsy pathology pending Procedure(s) Performed: EGD Colonoscopy Anesthesia: MAC Surgeon: Yoan Carrera Pathology: other (Antrum, right colon, rectum) Condition: stable Disposition: PACU Description of Procedure: Patient's placed on the endoscopy table lateral position. He received IV sedation. The gastroscope placed oropharynx passed into the esophagus and into the stomach. The scope was placed through the pylorus. The first second portion of the duodenum appeared normal. The scope was then brought back the antrum this appeared mildly inflamed. A biopsies performed. Scope was then retroflexed the her major of the stomach stomach appeared normal. There is no evidence of a hiatal hernia. The GE junction was at 40 cm.. The distal esophagus appeared normal. The proximal esophagus appeared Normal. Scope was withdrawn from patient. Next digital rectal exam was performed which revealed no abnormalities. The flexible colonoscope was then placed patient anus passed throughout the entire colon. The bowel was quite tortuous and there was a very poor prep. His a large amount of liquid stool in the colon. The ileocecal valve could not be visualized. The right colon appeared normal. A random biopsies performed. The transverse colon appeared normal. The descending colon appeared normal. The sigmoid colon appeared normal. The view of the colon was very limited due to the large amount liquid stool. In the rectum there is no abnormalities seen a random biopsies performed. Scope was withdrawn for patient.
[2016-12-07] MEDS ORDERED: HYDROcodone/APAP 7.5-325MG 1 EACH TAB PO PRN (11:54)
[2016-12-07] MEDS ORDERED: FAMOTIDINE 20 MG TAB PO SCH (12:00)
[2016-12-07 12:11] LABS: Glucose,Whole Blood 121 mg/dL (75-99)
[2016-12-07] MEDS ORDERED: metroNIDAZOLE 500 MG TAB PO SCH (16:00)
[2016-12-07] MEDS ORDERED: LEVOFLOXACIN 500 MG TAB PO SCH (19:00)
--- NOTE | 2016-12-07 19:03 | P.DS ---
Providers Date of admission: 12/02/16 17:45 Attending physician: Perlita Escoto Consults: 12/03/16 12:19 Consult Physician Routine Consulting Provider: Yoan Carrera Consult Reason/Comments: abd pain/ diverticulitis Do you want consulting provider notified?: Yes Primary care physician: Stated None Hospital Course: This 36-year-old gentleman was admitted with abdominal pain and diffuse thickening of the transverse and descending colon in the CAT scan showing possible colitis or diverticulitis. Patient treated symptomatically. Dr. pinto saw the patient. Patient underwent colonoscopy. Recommended close follow-up follow-up in the outpatient setting. I recommended the patient to follow up closely with the primary physician and multiple consultants in the outpatient setting and as well as follow-up with the biopsy. Stable but overall prognosis guarded. Patient understands and agrees. On exam vitals stable. Cardio S1 and S2 normal. Abdomen soft nontender. Nervous system system no focal deficit. Final diagnosis 1. Acute diffuse abdominal pain with possible diffuse colitis or diverticulitis involving the transverse and descending colon status post colonoscopy. 2. Anemia normocytic. 3. Subacute diarrhea. 4. History of asthma 5. History of GERD r Patient Condition at Discharge: Good Plan - Discharge Summary New Discharge Prescriptions: New Ciprofloxacin HCl [Cipro] 500 mg PO Q12HR #10 tablet HYDROcodone/APAP 7.5-325MG [[place] 7.5-325] 1 each PO Q4H PRN #30 tab PRN Reason: Pain metroNIDAZOLE [Flagyl] 500 mg PO TID #21 tab Nicotine 21Mg/24Hr Patch [Habitrol] 1 patch TRANSDERM DAILY #30 patch Ondansetron [Zofran] 4 mg PO Q8HR PRN #30 tab PRN Reason: Nausea Discharge Medication List Ciprofloxacin HCl [Cipro] 500 mg PO Q12HR #10 tablet 12/07/16 [Rx] HYDROcodone/APAP 7.5-325MG [[place] 7.5-325] 1 each PO Q4H PRN #30 tab 12/07/16 [ Rx] Nicotine 21Mg/24Hr Patch [Habitrol] 1 patch TRANSDERM DAILY #30 patch 12/07/16 [ Rx] Ondansetron [Zofran] 4 mg PO Q8HR PRN #30 tab 12/07/16 [Rx] metroNIDAZOLE [Flagyl] 500 mg PO TID #21 tab 12/07/16 [Rx] Follow up Appointment(s)/Referral(s): Dallas Mora MD [REFERRING] - 3 Days (Patient to call Dr. Adame's office to schedule follow up appointment. The office is closed at time of discharge.) Yoan Carrera MD [STAFF PHYSICIAN] - As Needed (Patient to call Dr. Carrera' s office if needed.) Patient Instructions/Handouts: Ciprofloxacin (By mouth), Hydrocodone/ Acetaminophen (By mouth), Metronidazole (By mouth), Nicotine (Absorbed through the skin), Ondansetron (By mouth), Diverticulitis (DC) Activity/Diet/Wound Care/Special Instructions: diet full liquids advance to soft bland as tolerated act as tolerated may return to work in 1 week Discharge Disposition: HOME SELF-CARE
--- NOTE | 2016-12-07 23:26 | PN ---
PROGRESS NOTE DATE OF SERVICE: 12/06/2016 This 36-year-old gentleman admitted with possible colitis and diverticulosis is being closely monitored. No chest pain. No palpitations. No fever. PHYSICAL EXAMINATION: Alert, oriented x3. Pulse is 65, blood pressure 1116/59, respiration 16, temperature 98.4, pulse ox 98% on room air. HEENT: Conjunctivae normal. NECK: No jugular venous distention. CARDIOVASCULAR SYSTEM: S1, S2 muffled. RESPIRATORY SYSTEM: Breath sounds diminished at the bases. A few scattered rhonchi and crackles. ABDOMEN: Soft, non-tender. LEGS: No edema. No swelling. NERVOUS SYSTEM: No focal deficit. LABS: Sodium 141, potassium 4.2. ASSESSMENT: 1. Diffuse abdominal pain, possibly colitis or diverticulitis. 2. Anemia, normocytic. 3. History of subacute diarrhea. 4. History of asthma. 5. History of gastroesophageal reflux disease. RECOMMENDATIONS AND DISCUSSION: I recommend to continue current medication, continue symptomatic treatment. Otherwise at this time I would recommend possible colonoscopy. Prognosis is guarded. Further recommendations to follow. MMODL / IJN: [id number] /
[2016-12-10 04:18] LABS: Cryptosporidium parvum Not detected (Not detected); Isospora belli Not detected (Not detected); Microsporidium Not detected (Not detected); Routine Ova and Parasites Not detected
== END 2016-12-07 15:25 | disposition home or self-care (01) | DRG 392 ==
LOC: EC 15:59 → 5MS5E 17:45
PROVIDERS: ADMIT Hospitalist; ATTEND Hospitalist
PROC: 0DB68ZX Excision of Stomach, Via Natural or Artificial Opening Endoscopic, Diagnostic (ICD-10-PCS; principal; 2016-12-02)
PROC: 0DBP8ZX Excision of Rectum, Via Natural or Artificial Opening Endoscopic, Diagnostic (ICD-10-PCS; 2016-12-02)
DX: K52.9 Noninfective gastroenteritis and colitis, unspecified (principal); E44.1 Mild protein-calorie malnutrition; K57.92 Diverticulitis of intestine, part unspecified, without perforation or abscess without bleeding; E86.0 Dehydration; D64.9 Anemia, unspecified; J45.909 Unspecified asthma, uncomplicated; K21.9 Gastro-esophageal reflux disease without esophagitis; F31.9 Bipolar disorder, unspecified; F12.90 Cannabis use, unspecified, uncomplicated; K29.60 Other gastritis without bleeding; F17.210 Nicotine dependence, cigarettes, uncomplicated; Z90.89 Acquired absence of other organs; Z86.19 Personal history of other infectious and parasitic diseases; Z83.3 Family history of diabetes mellitus; Z82.49 Family history of ischemic heart disease and other diseases of the circulatory system; Z87.442 Personal history of urinary calculi
CPT/HCPCS: 36415; 43239; 45380; 80048; 80053; 81001; 82272; 82330; 83036; 83735; 84100; 84478; 84484; 85025; 85652; 86140; 87045; 87046; 87177; 87207; 87209; 87324; 88305; 88342; 89055; 93005; 96374; 99285

== ENCOUNTER 2017-08-21 20:48 | Inpatient (IN) | payer OTHER ==
[2017-08-21] MEDS ORDERED: MORPHINE SULFATE/PF 10MG/10ML VL IVP PRN (23:30)
[2017-08-22] MEDS ORDERED: KETOROLAC 30 MG/ML 1 ML VIAL IVP SCH
[2017-08-22] MEDS: PANTOPRAZOLE 40 MG/10 ML VIAL IVP SCH ×3 (00:58→19:52)
[2017-08-22] MEDS: SODIUM CHLORIDE 0.9% 1,000 ML IV SCH ×3 (00:59→19:51)
[2017-08-22] MEDS: MORPHINE SULFATE 2 MG/ML SYRINGE IVP PRN ×2 (01:00→08:18)
[2017-08-22] MEDS: KETOROLAC 30 MG/ML 1 ML VIAL IVP PRN ×2 (06:07→13:48)
[2017-08-22 07:54] LABS: Basophils # (A) 0.1 k/uL (0-0.2); Basophils % (A) 0 %; Eosinophils # (A) 0.2 k/uL (0-0.7); Eosinophils % (A) 1 %; HCT 33.3 % (39.0-53.0); HGB 11.5 gm/dL (13.0-17.5); Lymphocytes # (A) 0.9 k/uL (1.0-4.8); Lymphocytes % (A) 6 %; MCH 31.7 pg (25.0-35.0); MCHC 34.5 g/dL (31.0-37.0); Mean Platelet Volume 7.1; Monocytes # (A) 0.8 k/uL (0-1.0); Monocytes % (A) 6 %; Neutrophils # (A) 12.4 k/uL (1.3-7.7); Neutrophils % (A) 86 %; Platelet Count 271 k/uL (150-450); RBC 3.62 m/uL (4.30-5.90); RDW 13.4 % (11.5-15.5); WBC 14.5 k/uL (3.8-10.6)
[2017-08-22 08:03] LABS: ALT 41 U/L (21-72); AST 32 U/L (17-59); Albumin 3.4 g/dL (3.5-5.0); Alkaline Phosphatase 78 U/L (38-126); Anion Gap 8 mmol/L; Blood Urea Nitrogen 11 mg/dL (9-20); Calcium 8.4 mg/dL (8.4-10.2); Carbon Dioxide 21 mmol/L (22-30); Chloride 108 mmol/L (98-107); Glucose 105 mg/dL (74-99); Potassium 3.8 mmol/L (3.5-5.1); Sodium 137 mmol/L (137-145); Total Bilirubin 0.4 mg/dL (0.2-1.3); Total Protein 5.8 g/dL (6.3-8.2)
--- NOTE | 2017-08-22 09:38 | CT ---
EXAMINATION TYPE: CT abdomen pelvis wo con DATE OF EXAM: 08/22/2017 COMPARISON: 12/02/2016 HISTORY: Intussusception CT DLP: 663 mGycm Automated exposure control for dose reduction was used. TECHNIQUE: Helical acquisition of images was performed from the lung bases through the pelvis. FINDINGS: LUNG BASES: No significant abnormality is appreciated. LIVER/GB: Hyperdensity within the gallbladder should be correlated from recent contrast.. PANCREAS: No significant abnormality is seen. SPLEEN: No significant abnormality is seen. ADRENALS: No significant abnormality is seen. KIDNEYS: There is hyperdensity within the collecting system of both kidneys correlate for recent cont rast.. FREE AIR: No free air is visualized ADENOPATHY: None visualized. OSSEOUS STRUCTURES: No significant abnormality is seen. BOWEL: Bowel gas pattern nonspecific. OTHER: Aorta of normal caliber. There is inflammation within the right lower quadrant. No diagnostic evidence of bowel obstruction. Appendix is not seen with certainty. Contrast within the bladder is no argenis. IMPRESSION: 1. Nonspecific bowel gas pattern. There are a few fluid-filled prominent small bowel loops. Air is se en throughout the colon. The stomach does not appear to be distended. There does appear to be a small amount free fluid along the right abdomen extending in the right pericolic gutter. There is very lit tle peritoneal fat and no contrast which makes discerning the anatomical structures difficult. Append ix is not seen with certainty. Inflammatory process or obstructive process in the right abdomen in t he differential diagnosis. 2. There appears to be residual contrast within the bladder, gallbladder and collecting systems but n o recent CT scan for comparison. Correlate for recent contrast administration.
[2017-08-22] MEDS: HYDROmorphone 0.5 MG/0.5 ML SYRINGE IVP PRN ×4 (10:56→23:14)
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
[2017-08-22] MEDS: ONDANSETRON 4 MG/2 ML VIAL IVP PRN (22:04)
[2017-08-23 00:30] VITALS: PULSE 62
[2017-08-23] MEDS: HYDROmorphone 0.5 MG/0.5 ML SYRINGE IVP PRN ×3 (02:22→08:33)
[2017-08-23] MEDS: ONDANSETRON 4 MG/2 ML VIAL IVP PRN (05:26)
[2017-08-23] MEDS: SODIUM CHLORIDE 0.9% 1,000 ML IV SCH (05:30)
[2017-08-23 06:08] VITALS: BP 106/69; RESP 18; TEMP 97.7
[2017-08-23] MEDS: PANTOPRAZOLE 40 MG/10 ML VIAL IVP SCH (08:22)
[2017-08-23] MEDS: KETOROLAC 30 MG/ML 1 ML VIAL IVP PRN (08:23)
[2017-08-23 08:45] LABS: Basophils % (A) 1 %; Eosinophils # (A) 0.2 k/uL (0-0.7); Eosinophils % (A) 3 %; HCT 34.9 % (39.0-53.0); HGB 11.7 gm/dL (13.0-17.5); Lymphocytes # (A) 1.6 k/uL (1.0-4.8); Lymphocytes % (A) 24 %; MCH 31.7 pg (25.0-35.0); MCHC 33.4 g/dL (31.0-37.0); MCV 94.7 fL (80.0-100.0); Monocytes # (A) 0.8 k/uL (0-1.0); Monocytes % (A) 12 %; Neutrophils % (A) 58 %; Platelet Count 244 k/uL (150-450); RBC 3.69 m/uL (4.30-5.90); RDW 14.2 % (11.5-15.5); WBC 6.9 k/uL (3.8-10.6)
[2017-08-23 08:59] LABS: Blood Urea Nitrogen 10 mg/dL (9-20); Calcium 8.3 mg/dL (8.4-10.2); Carbon Dioxide 25 mmol/L (22-30); Glucose 93 mg/dL (74-99); Potassium 3.7 mmol/L (3.5-5.1); Sodium 139 mmol/L (137-145)
[2017-08-23 09:11] LABS: Anion Gap 8 mmol/L; Chloride 106 mmol/L (98-107)
--- NOTE | 2017-08-23 11:44 | P.PN ---
<Isis Mcarthurgeneva lBandon - Last Filed: 08/23/17 11:32> Subjective Progress Note Date: 08/23/17 37-year-old male seen and examined up ambulating on the unit patient states he has to be discharged today he has no ride home he lives 2 hours away. Patient states he has no abdominal pain and has had several bowel movements. Patient is asking for IV dilaudid states that if he doesn't get it that he needs to go home patient had a CAT scan done at another hospital which showed small bowel intussusception. Was transferred to this facility. A repeat CAT scan done this yesterday showed no evidence of a small bowel intussusception Objective - Vital Signs Vital signs: Vital Signs Temp 97.7 F 08/23/17 06:07 Pulse 62 08/23/17 06:07 Resp 18 08/23/17 06:07 BP 106/69 08/23/17 06:07 Pulse Ox 97 08/23/17 06:07 Intake & Output 08/22/17 08/23/17 08/23/17 18:59 06:59 18:59 Intake Total 800 450 Balance 800 450 Intake: IV 800 Sodium Chloride 0.9% 1, 800 000 ml @ 100 mls/hr IV . Q10H [facility] Rx#:[id number] Oral 450 Other: Voiding Method Toilet # Voids 1 2 - Exam Physical exam 37-year-old male up ambulating in the room and in the hallway states passing gas states no nausea vomiting states no abdominal pain Lungs adequate air movement bilaterally Heart S1-S2 audible regular Abdomen flat nontender no facial grimacing with palpitation to the abdominal wall bowel tones present no nausea no vomiting Extremities no edema - Labs CBC & Chem 7: 08/23/17 08:21 08/23/17 08:21 Labs: Abnormal Lab Results - Last 24 Hours (Table) 08/23/17 08/23/17 Range/Units 08:21 08:21 RBC 3.69 L (4.30-5.90) m/uL Hgb 11.7 L (13.0-17.5) gm/dL Hct 34.9 L (39.0-53.0) % Calcium 8.3 L (8.4-10.2) mg/dL Assessment and Plan Assessment: Impression Computed tomography scan performed at referring hospital as part of a workup for abdominal pain showed evidence of a small bowel intussusception resolved Repeat the CAT scan on admission showed no evidence of a small bowel intussusception Plan No evidence of an acute surgical abdomen From surgical perspective could be discharged per to the timing to the attending Progress note dictated for Dr. Leong rounding on behalf of The above impression and plan of care have been discussed and directed by signing physician. Manisha Mcarthur nurse practitioner acting as scribe for signing physician. <Yuliana Leong N - Last Filed: 08/23/17 21:33> Objective - Vital Signs Vital signs: Vital Signs Temp 97.7 F 08/23/17 06:07 Pulse 62 08/23/17 08:00 Resp 18 08/23/17 08:00 BP 106/69 08/23/17 06:07 Pulse Ox 97 08/23/17 06:07 Intake & Output 08/23/17 08/23/17 08/24/17 06:59 18:59 06:59 Intake Total 450 Balance 450 Intake: Oral 450 Other: Voiding Method Toilet Toilet # Voids 2 - Labs CBC & Chem 7: 08/23/17 08:21 08/23/17 08:21 Labs: Abnormal Lab Results - Last 24 Hours (Table) 08/23/17 08/23/17 Range/Units 08:21 08:21 RBC 3.69 L (4.30-5.90) m/uL Hgb 11.7 L (13.0-17.5) gm/dL Hct 34.9 L (39.0-53.0) % Calcium 8.3 L (8.4-10.2) mg/dL
--- NOTE | 2017-08-23 13:38 | P.DS ---
Providers Date of admission: 08/21/17 23:10 Expected date of discharge: 08/23/17 Attending physician: Adrianne Wright Consults: 08/21/17 23:34 Consult Physician Routine Consulting Provider: Yoan Carrera Consult Reason/Comments: intussusception Do you want consulting provider notified?: Yes, Notify in am Placement Type Exists?: Yes Primary care physician: Stated None Hospital Course: Is a 37-year-old male who was transferred from outside hospital. Patient had a complaints of abdominal pain. His CAT scan performed at the referring hospital showed evidence of a small bowel intussusception. Patient was transferred for further treatment last night. He is admitted to the medical service. Patient states that he is hungry. He still has pain. But he states he feels slightly better today. A stat CAT scan was here this morning. There is no evidence of small bowel intussusception. Patient denies any nausea or vomiting. While in the hospital patient was treated conservatively keeping patient nothing by mouth; surgery was consulted and did not feel patient had surgical abdomen; patient was treated conservatively with IV Dilaudid and IV fluids; patient due to improvement didn't have any complications; he started tolerating diet pretty well and was discharged home in a stable condition Pertinent Studies: CT abdomen Procedures: none Patient Condition at Discharge: Fair Plan - Discharge Summary New Discharge Prescriptions: No Action No Known Home Medications [No Known Home Medications] Discharge Medication List No Known Home Medications [No Known Home Medications] 08/22/17 [History] Activity/Diet/Wound Care/Special Instructions: As tolerated Discharge Disposition: HOME SELF-CARE
== END 2017-08-23 13:48 | disposition home or self-care (01) | DRG 390 ==
LOC: 4MS4W 23:10
PROVIDERS: ADMIT Internal Medicine; ATTEND Internal Medicine
DX: K56.1 Intussusception (principal); D72.829 Elevated white blood cell count, unspecified; F17.200 Nicotine dependence, unspecified, uncomplicated; F31.9 Bipolar disorder, unspecified; J45.909 Unspecified asthma, uncomplicated; K21.9 Gastro-esophageal reflux disease without esophagitis; Z82.49 Family history of ischemic heart disease and other diseases of the circulatory system; Z83.3 Family history of diabetes mellitus; Z87.442 Personal history of urinary calculi; Z86.19 Personal history of other infectious and parasitic diseases; Z79.2 Long term (current) use of antibiotics; Z79.891 Long term (current) use of opiate analgesic; Z79.899 Other long term (current) drug therapy
CPT/HCPCS: 74176; 80048; 80053; 85025